=== PATIENT | male | born 1965 | race Caucasian/White ===

== ENCOUNTER 2017-04-08 17:00 | Inpatient (IN) | payer MEDICAID, OTHER ==
[2017-04-08 19:33] LABS: ADD MAN DIFF? NO
[2017-04-08 19:37] LABS: WHITE BLOOD COUNT 9.4 10^3/ul (4.8-10.8)
[2017-04-08 19:37] LABS: BASOPHILS % 0.3 % (0.0-2.0); EOSINOPHILS # 0.2 10^3/ul (0.0-0.5); EOSINOPHILS % 1.8 % (0.0-7.0); HEMATOCRIT 35.3 % (42.0-52.0); HEMOGLOBIN 11.6 g/dl (14.0-18.0); LYMPHOCYTES # 0.6 10^3/ul (0.8-2.9); LYMPHOCYTES % 6.6 % (15.0-51.0); MEAN CORPUSCULAR HEMOGLOBIN 30.6 pg (29.0-33.0); MEAN CORPUSCULAR HGB CONC 32.9 g/dl (32.0-37.0); MEAN CORPUSCULAR VOLUME 93.1 fl (82.0-101.0); MEAN PLATELET VOLUME 10.5 fl (7.4-10.4); MONOCYTE # 0.7 10^3/ul (0.3-0.9); MONOCYTES % 6.9 % (0.0-11.0); NEUTROPHIL # 7.9 10^3/ul (1.6-7.5); NEUTROPHILS % 83.8 % (39.0-77.0); PLATELET COUNT 238 10^3/UL (140-415); RED BLOOD COUNT 3.79 10^6/ul (4.70-6.10)
[2017-04-08] MEDS: BELLADONNA/PHENOBARBITAL TAB PO (19:44)
[2017-04-08] MEDS: LIDOCAINE/MYLANTA 40 ML BTL PO (19:44)
[2017-04-08] MEDS: ONDANSETRON 4 MG INJ IV (19:44)
[2017-04-08] MEDS: morphine 4 MG/ML VIAL IV ×2 (19:44→21:59)
[2017-04-08] MEDS: hydrALAzine 20 MG INJ IV (19:50)
[2017-04-08 19:51] LABS: INR 1.01; PROTIME 13.4 Sec (11.9-14.9)
[2017-04-08 19:53] LABS: ALANINE AMINOTRANSFERASE 59 IU/L (13-69); ALBUMIN 3.9 g/dl (3.3-4.9); ALBUMIN/GLOBULIN RATIO 0.97; ALKALINE PHOSPHATASE 179 IU/L (42-121); ANION GAP 25 (8-16); ASPARTATE AMINO TRANSFERASE 47 IU/L (15-46); BILIRUBIN,INDIRECT 0.1 mg/dl (0-1.1); BILIRUBIN,TOTAL 0.1 mg/dl (0.2-1.3); BLOOD UREA NITROGEN 71 mg/dl (7-20); CALCIUM 8.7 mg/dl (8.4-10.2); CARBON DIOXIDE 21 mmol/L (21-31); CHLORIDE 98 mmol/L (97-110); CREATININE 9.87 mg/dl (0.61-1.24); GLUCOSE 295 mg/dl (70-220); LIPASE 217 U/L (23-300); SODIUM 138 mmol/L (135-144); TOTAL PROTEIN 7.9 g/dl (6.1-8.1)
[2017-04-08] MEDS: INSULIN REGULAR, HUMAN 100 UNIT/1 ML 3ML VIAL IV (20:43)
[2017-04-08] MEDS: DEXTROSE 50% 50 ML SYRINGE IV (20:44)
[2017-04-08] MEDS: FUROSEMIDE 40 MG INJ IV (20:44)
[2017-04-08] MEDS: LEVOFLOXACIN 750MG/D5W (PMX) 150 ML IVPB (21:58)
[2017-04-09] MEDS ORDERED: HYDROCODONE/APAP (5/325) TAB PO
[2017-04-09] MEDS ORDERED: NACL 0.9% 3 ML SYG IV
[2017-04-09] MEDS ORDERED: ALBUTEROL/IPRATROPIUM (NEB) 3 ML AMP HHN
[2017-04-09] MEDS: morphine 4 MG/ML VIAL IV ×2 (01:32→04:50)
[2017-04-09] MEDS: METOPROLOL 25 MG TAB PO ×4 (03:32→22:09)
[2017-04-09] MEDS: ACCU-CHEK XX (03:32)
[2017-04-09] MEDS: ONDANSETRON 4 MG INJ IV ×2 (04:50→09:07)
[2017-04-09] MEDS: hydrALAzine 20 MG INJ IV ×2 (04:51→18:18)
[2017-04-09 07:01] LABS: ADD MAN DIFF? NO
[2017-04-09 07:05] LABS: BASOPHILS % 0.3 % (0.0-2.0); EOSINOPHILS # 0.1 10^3/ul (0.0-0.5); EOSINOPHILS % 1.4 % (0.0-7.0); HEMATOCRIT 34.4 % (42.0-52.0); HEMOGLOBIN 11.1 g/dl (14.0-18.0); LYMPHOCYTES # 0.8 10^3/ul (0.8-2.9); LYMPHOCYTES % 8.2 % (15.0-51.0); MEAN CORPUSCULAR HEMOGLOBIN 30.4 pg (29.0-33.0); MEAN CORPUSCULAR HGB CONC 32.3 g/dl (32.0-37.0); MEAN CORPUSCULAR VOLUME 94.2 fl (82.0-101.0); MEAN PLATELET VOLUME 10.5 fl (7.4-10.4); MONOCYTE # 0.9 10^3/ul (0.3-0.9); MONOCYTES % 9.3 % (0.0-11.0); NEUTROPHIL # 7.9 10^3/ul (1.6-7.5); NEUTROPHILS % 80.5 % (39.0-77.0); PLATELET COUNT 239 10^3/UL (140-415); RED BLOOD COUNT 3.65 10^6/ul (4.70-6.10); RED CELL DISTRIBUTION WIDTH 14.9 % (11.5-14.5)
[2017-04-09 07:05] LABS: WHITE BLOOD COUNT 9.8 10^3/ul (4.8-10.8)
[2017-04-09] MEDS: INSULIN ASPART [NOVOLOG] 3 ML PEN SC ×4 (07:41→21:00)
[2017-04-09 07:43] LABS: ALANINE AMINOTRANSFERASE 54 IU/L (13-69); ALBUMIN 3.7 g/dl (3.3-4.9); ALKALINE PHOSPHATASE 174 IU/L (42-121); ASPARTATE AMINO TRANSFERASE 28 IU/L (15-46); BLOOD UREA NITROGEN 77 mg/dl (7-20); CALCIUM 8.8 mg/dl (8.4-10.2); CARBON DIOXIDE 24 mmol/L (21-31); CHLORIDE 99 mmol/L (97-110); CHOLESTEROL 136 mg/dl (100-200); CREATININE 10.76 mg/dl (0.61-1.24); GLUCOSE 127 mg/dl (70-220); HDL CHOLESTEROL 34 mg/dl (28-71); LDL CHOLESTEROL,CALCULATED 90 mg/dl; SODIUM 141 mmol/L (135-144); TOTAL PROTEIN 7.4 g/dl (6.1-8.1); TRIGLYCERIDES 61 mg/dl (0-149)
[2017-04-09 08:15] LABS: ANION GAP 24 (8-16); POTASSIUM 6.3 mmol/L (3.5-5.1)
[2017-04-09 08:52] LABS: HEMOGLOBIN A1C 7.8 % (0-5.9)
[2017-04-09] MEDS: NA POLYST SULFON 15 GM/60 ML BTL PO ×2 (08:55→10:15)
[2017-04-09] MEDS: HEPARIN 5,000 UNIT/0.5 ML VIAL SC ×2 (08:56→21:00)
[2017-04-09] MEDS: INSULIN GLARGINE [LANtus] 3 ML PEN SC (08:56)
[2017-04-09] MEDS: CEFTRIAXONE 1 GM/50 ML (PMX) 50 ML IVPB ×2 (08:57→22:08)
[2017-04-09] MEDS ORDERED: CEFTRIAXONE 1 GM/50 ML (PMX) 50 ML IVPB (09:00)
[2017-04-09] MEDS: AZITHROMYCIN 500MG/NS (PMX) 250 ML IVPB (09:54)
[2017-04-09] MEDS: AMLODIPINE 5 MG TAB PO ×2 (14:39→22:08)
[2017-04-09] MEDS: GUAIFENESIN/CODEINE 5ML CUP PO (14:40)
[2017-04-09 15:24] LABS: ANION GAP 27 (8-16); BLOOD UREA NITROGEN 80 mg/dl (7-20); CARBON DIOXIDE 21 mmol/L (21-31); CHLORIDE 100 mmol/L (97-110); CREATININE 11.29 mg/dl (0.61-1.24); GLUCOSE 111 mg/dl (70-220); POTASSIUM 5.8 mmol/L (3.5-5.1); SODIUM 142 mmol/L (135-144)
[2017-04-09] MEDS ORDERED: FLUTICASONE 0.05% 16 GM NAS SPRAY NASAL (21:30)
[2017-04-09] MEDS ORDERED: GLUCOSE GEL 15 GRAM TUBE PO ×2 (22:30)
[2017-04-09] MEDS ORDERED: GLUCOSE GEL 15 GRAM TUBE BUCCAL (22:30)
[2017-04-09] MEDS ORDERED: GLUCAGON 1 MG INJ IM (22:30)
[2017-04-09] MEDS ORDERED: DEXTROSE 50% 50 ML SYRINGE IV ×2 (22:30)
[2017-04-10] MEDS: SALINE 0.65% 45 ML NAS SPRAY NASAL (00:53)
[2017-04-10] MEDS: ACCU-CHEK XX (02:00)
[2017-04-10 07:52] LABS: ADD MAN DIFF? NO
[2017-04-10] MEDS: INSULIN ASPART [NOVOLOG] 3 ML PEN SC ×4 (07:55→22:48)
[2017-04-10 07:58] LABS: BASOPHILS % 0.2 % (0.0-2.0); EOSINOPHILS # 0.2 10^3/ul (0.0-0.5); EOSINOPHILS % 2.2 % (0.0-7.0); HEMATOCRIT 31.8 % (42.0-52.0); HEMOGLOBIN 10.4 g/dl (14.0-18.0); LYMPHOCYTES % 11.2 % (15.0-51.0); MEAN CORPUSCULAR HEMOGLOBIN 30.3 pg (29.0-33.0); MEAN CORPUSCULAR HGB CONC 32.7 g/dl (32.0-37.0); MEAN CORPUSCULAR VOLUME 92.7 fl (82.0-101.0); MEAN PLATELET VOLUME 10.7 fl (7.4-10.4); MONOCYTE # 0.8 10^3/ul (0.3-0.9); MONOCYTES % 9.3 % (0.0-11.0); NEUTROPHIL # 6.5 10^3/ul (1.6-7.5); NEUTROPHILS % 76.7 % (39.0-77.0); PLATELET COUNT 213 10^3/UL (140-415); RED BLOOD COUNT 3.43 10^6/ul (4.70-6.10); RED CELL DISTRIBUTION WIDTH 15.1 % (11.5-14.5)
[2017-04-10 07:58] LABS: WHITE BLOOD COUNT 8.5 10^3/ul (4.8-10.8)
[2017-04-10] MEDS: CEFTRIAXONE 1 GM/50 ML (PMX) 50 ML IVPB ×2 (08:11→20:16)
[2017-04-10] MEDS: AZITHROMYCIN 500MG/NS (PMX) 250 ML IVPB (08:12)
[2017-04-10] MEDS: AMLODIPINE 5 MG TAB PO ×2 (08:12→22:42)
[2017-04-10] MEDS: METOPROLOL 25 MG TAB PO ×2 (08:12→22:43)
[2017-04-10] MEDS: HEPARIN 5,000 UNIT/0.5 ML VIAL SC ×2 (08:14→22:49)
[2017-04-10 08:16] LABS: ANION GAP 22 (8-16); BLOOD UREA NITROGEN 56 mg/dl (7-20); CALCIUM 7.8 mg/dl (8.4-10.2); CARBON DIOXIDE 26 mmol/L (21-31); CHLORIDE 96 mmol/L (97-110); CREATININE 8.79 mg/dl (0.61-1.24); GLUCOSE 95 mg/dl (70-220); POTASSIUM 4.5 mmol/L (3.5-5.1); SODIUM 139 mmol/L (135-144)
[2017-04-10] MEDS: INSULIN GLARGINE [LANtus] 3 ML PEN SC (08:20)
[2017-04-10] MEDS: D5W-0.45 NACL + KCL 20 MEQ 1,000 ML IV (12:41)
[2017-04-10] MEDS: PANTOPRAZOLE 40 MG INJ IV (17:17)
[2017-04-10] MEDS ORDERED: PROPOFOL 20 ML (17:42)
[2017-04-10] MEDS ORDERED: FENTAnyl 50 MCG/ML VIAL (17:42)
[2017-04-10 17:47] LABS: PROSTATE SPECIFIC ANTIGEN 0.3 ng/ml (0.0-4.0)
[2017-04-10] MEDS ORDERED: LABETALOL HCL 20MG INJ IV (18:30)
[2017-04-10] MEDS ORDERED: hydrALAzine 20 MG INJ IV (18:30)
[2017-04-10] MEDS: FLUCONAZOLE 100 MG TAB PO (20:15)
[2017-04-10] MEDS: TAMSULOSIN (SR) 0.4 MG CAP PO (22:42)
[2017-04-11] MEDS: hydrALAzine 20 MG INJ IV (00:04)
[2017-04-11] MEDS: ACCU-CHEK XX (03:00)
[2017-04-11] MEDS: PANTOPRAZOLE 40 MG INJ IV (06:33)
[2017-04-11] MEDS: D5W-0.45 NACL + KCL 20 MEQ 1,000 ML IV (06:33)
[2017-04-11] MEDS: INSULIN GLARGINE [LANtus] 3 ML PEN SC (08:00)
[2017-04-11] MEDS: INSULIN ASPART [NOVOLOG] 3 ML PEN SC ×2 (08:00→13:01)
[2017-04-11 08:15] LABS: ADD MAN DIFF? NO
[2017-04-11] MEDS: AMLODIPINE 5 MG TAB PO (08:17)
[2017-04-11] MEDS: METOPROLOL 25 MG TAB PO (08:17)
[2017-04-11] MEDS: CEFTRIAXONE 1 GM/50 ML (PMX) 50 ML IVPB (08:18)
[2017-04-11] MEDS: AZITHROMYCIN 500MG/NS (PMX) 250 ML IVPB (08:21)
[2017-04-11] MEDS: FLUCONAZOLE 100 MG TAB PO (08:21)
[2017-04-11] MEDS: HEPARIN 5,000 UNIT/0.5 ML VIAL SC (08:23)
[2017-04-11 08:25] LABS: BASOPHILS % 0.1 % (0.0-2.0); EOSINOPHILS # 0.3 10^3/ul (0.0-0.5); EOSINOPHILS % 3.7 % (0.0-7.0); HEMATOCRIT 30.8 % (42.0-52.0); HEMOGLOBIN 10.3 g/dl (14.0-18.0); LYMPHOCYTES # 0.7 10^3/ul (0.8-2.9); LYMPHOCYTES % 9.7 % (15.0-51.0); MEAN CORPUSCULAR HEMOGLOBIN 30.7 pg (29.0-33.0); MEAN CORPUSCULAR HGB CONC 33.4 g/dl (32.0-37.0); MEAN CORPUSCULAR VOLUME 91.9 fl (82.0-101.0); MEAN PLATELET VOLUME 10.7 fl (7.4-10.4); MONOCYTE # 0.9 10^3/ul (0.3-0.9); MONOCYTES % 12.4 % (0.0-11.0); NEUTROPHIL # 5.4 10^3/ul (1.6-7.5); NEUTROPHILS % 73.8 % (39.0-77.0); PLATELET COUNT 193 10^3/UL (140-415); RED BLOOD COUNT 3.35 10^6/ul (4.70-6.10); RED CELL DISTRIBUTION WIDTH 14.8 % (11.5-14.5)
[2017-04-11 08:25] LABS: WHITE BLOOD COUNT 7.3 10^3/ul (4.8-10.8)
[2017-04-11 09:11] LABS: ANION GAP 22 (8-16); BLOOD UREA NITROGEN 65 mg/dl (7-20); CALCIUM 7.5 mg/dl (8.4-10.2); CARBON DIOXIDE 23 mmol/L (21-31); CHLORIDE 95 mmol/L (97-110); CREATININE 9.97 mg/dl (0.61-1.24); GLUCOSE 172 mg/dl (70-220); POTASSIUM 4.8 mmol/L (3.5-5.1); SODIUM 135 mmol/L (135-144)
[2017-04-11] MEDS: ACETAMINOPHEN 325 MG TAB PO (10:31)
[2017-04-11] MEDS ORDERED: ALPRAZOLAM 0.5 MG TAB PO (12:00)
== END 2017-04-11 17:30 | disposition home or self-care (01) | DRG 391 ==
LOC: TEL 20:25 → E/R 17:00
PROC: 0DB58ZX Excision of Esophagus, Via Natural or Artificial Opening Endoscopic, Diagnostic (ICD-10-PCS; principal; 2017-04-10 17:30)
PROC: 0DB68ZX Excision of Stomach, Via Natural or Artificial Opening Endoscopic, Diagnostic (ICD-10-PCS; 2017-04-10 17:30)
PROC: 5A1D70Z Performance of Urinary Filtration, Intermittent, Less than 6 Hours Per Day (ICD-10-PCS; 2017-04-10 17:30)
DX: K29.70 Gastritis, unspecified, without bleeding (principal); J18.9 Pneumonia, unspecified organism; N18.6 End stage renal disease; I12.0 Hypertensive chronic kidney disease with stage 5 chronic kidney disease or end stage renal disease; B37.81 Candidal esophagitis; E11.22 Type 2 diabetes mellitus with diabetic chronic kidney disease; K22.10 Ulcer of esophagus without bleeding; I16.1 Hypertensive emergency; E11.65 Type 2 diabetes mellitus with hyperglycemia; E87.5 Hyperkalemia; M54.5 Low back pain; D64.9 Anemia, unspecified; R13.10 Dysphagia, unspecified; R19.7 Diarrhea, unspecified; Z99.2 Dependence on renal dialysis
CPT/HCPCS: 36415; 71045; 72020; 74176; 80048; 80053; 80061; 82962; 83036; 83690; 84153; 84154; 84443; 85025; 85610; 88305; 88312; 88313; 90935; 93005; 96374; 96375; 96376; 99291-25